=== PATIENT | female | born 1960 | race Caucasian/White ===

== ENCOUNTER 2018-04-15 11:02 | Day surgery (SDC) | payer OTHER ==
[2018-04-15] MEDS ORDERED: LIDOCAINE 4% SOLUTION 50 ML BTL (13:07)
[2018-04-15] MEDS ORDERED: MIDAZOLAM 1 MG/ML 2 ML INJ ×3 (13:54)
[2018-04-15] MEDS ORDERED: MEPERIDINE 50 MG INJ ×2 (13:55→13:56)
[2018-04-15] MEDS ORDERED: FENTAnyl 50 MCG/ML VIAL (13:55)
== END 2018-04-15 14:41 | disposition home or self-care (01) ==
LOC: GIL 11:02
DX: Z12.11 Encounter for screening for malignant neoplasm of colon (principal); K44.9 Diaphragmatic hernia without obstruction or gangrene; K64.8 Other hemorrhoids; I10 Essential (primary) hypertension; R73.03 Prediabetes
CPT/HCPCS: 43239; 87045; 87177; 88305